=== PATIENT | male | born 2000 | race Caucasian/White ===

== ENCOUNTER 2023-11-10 02:02 | Emergency (ER) | payer OTHER ==
[~2023-11-10] VITALS: Ht 175.3 cm; Wt 79.2 kg
[2023-11-10] MEDS ORDERED: ondansetron HCL 4 MG/2 ML VIAL ONE (02:14)
[2023-11-10] MEDS ORDERED: HYDROmorphone HCL 1 MG/ML SYR IV ONE (02:15)
[2023-11-10] MEDS ORDERED: LORazepam 2 MG/ML VIAL IV ONE (02:15)
[2023-11-10 02:23] LABS: EOSINOPHILS 0.6 % (0-6); HEMATOCRIT 44.7 % (35.0-50.0); HEMOGLOBIN 15.4 g/dL (12.0-18.0); LYMPHOCYTES 14.4 % (24-44); MCH 31.6 (27-36); MCHC 34.5 g/dl (30-36); MCV 91.5 fl (81-99); MONOCYTES 6.7 % (0-12); NEUTROPHILS 77.3 % (39-80); PLATELET COUNT 341 K/uL (140-440); RBC 4.88 M/ul (4.3-5.7); RDW 13.5 (10.5-15.0)
[2023-11-10] MEDS ORDERED: LACTATED RINGER'S 1,000 ML IV ONE (02:30)
[2023-11-10] MEDS ORDERED: DIPHTH,PERTUSS(ACELL),TET VAC 0.5 ML SYRINGE IM ONE (02:30)
[2023-11-10] MEDS ORDERED: TRANEXAMIC ACID 2,000 MG in SODIUM CHLORIDE 0.9% 100 ML IV ONE (02:30)
[2023-11-10] MEDS ORDERED: CEFAZOLIN SODIUM 2 GM/20 ML SYR IV ONE (02:30)
[2023-11-10] MEDS ORDERED: HYDROmorphone HCL 1 MG/ML SYR IV PRN (02:30)
[2023-11-10 02:38] LABS: ALBUMIN 4.4 g/dL (3.4-5.0); ALBUMIN/GLOBULIN RATIO 1.22 (1.1-2.4); ANION GAP 15.8 (7-21); BILIRUBIN, TOTAL 0.6 ng/dL (0.2-1.0); BUN/CREATININE RATIO 4.39 (6.0-28.6); CREATININE, SERUM 0.91 mg/dL (0.70-1.30); POTASSIUM 3.8 mmol/L (3.5-5.1)
[2023-11-10] MEDS ORDERED: ondansetron HCL 4 MG/2 ML VIAL IV ONE (02:45)
[2023-11-10 02:57] LABS: ABO O; ANTIBODY SCREEN NEGATIVE; RH POSITIVE
[2023-11-10] MEDS ORDERED: AMOX TR-K CLV1 EAC1 PO (05:01)
[2023-11-10] MEDS ORDERED: PERCOCET 5-3251 EACH PO (05:01)
[2023-11-10] MEDS ORDERED: AMOXICILLIN/CLAVULANATE K 875 MG HOME.PACK PO ONE (05:15)
[2023-11-10] MEDS ORDERED: OXYCODONE/ACETAMINOPHEN 1 TAB HOME.PACK PO ONE (05:15)
[2023-11-10 07:10] VITALS: BP 145/86
== END 2023-11-10 07:10 | disposition home or self-care (01) ==
LOC: ED 02:02
PROVIDERS: Family Medicine
DX: S71.112A Laceration without foreign body, left thigh, initial encounter (principal); S62.396A Other fracture of fifth metacarpal bone, right hand, initial encounter for closed fracture; X99.1XXA Assault by knife, initial encounter; Z88.5 Allergy status to narcotic agent
CPT/HCPCS: 36415; 73130; 75635; 80053; 80307; 83605; 85025; 86850; 86900; 86901; 90471; 90715; 99284-25; G0480; J0690; J1170; J2060; J2405; J7121; Q9967